=== PATIENT | male | born 1985 | race Caucasian/White ===

== ENCOUNTER 2018-12-12 11:20 | Emergency (ER) | payer MEDICAID ==
[~2018-12-12] VITALS: Ht 177.8 cm; Wt 121.1 kg
[2018-12-12 11:27] VITALS: BP 153/93
--- NOTE | 2018-12-12 11:33 | NUR ---
Patient ambulated to bed 10. RN evaluating patient at bedside.
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
[2018-12-12] MEDS ORDERED: CLINDAMYCIN 600 MG/4 ML VIAL IM ONE (12:50)
[2018-12-12] MEDS ORDERED: KETOROLAC 60 MG/2 ML VIAL IM ONE (12:50)
[2018-12-12] MEDS ORDERED: traMADol 50 MG TAB PO ONE (12:50)
[2018-12-12 14:12] VITALS: BP 140/101
--- NOTE | 2018-12-12 14:12 | NUR ---
Patient discharged with v/s stable. Written and verbal after care instructions given and explained. Patient alert, oriented and verbalized understanding of instructions. Ambulatory with steady gait. All questions addressed prior to discharge. ID band removed. Patient advised to follow up with PMD. Rx of CLINDAMYCIN, MOTRIN given. Patient educated on indication of medication including possible reaction and side effects. Opportunity to ask questions provided and answered.
== END 2018-12-12 14:12 | disposition home or self-care (01) ==
LOC: MED 11:20
DX: K02.9 Dental caries, unspecified (principal); Z88.0 Allergy status to penicillin
CPT/HCPCS: 96372; 99283; J1885; J3490

== ENCOUNTER 2021-12-03 23:35 | Emergency (ER) | payer MEDICAID ==
[~2021-12-03] VITALS: Ht 177.8 cm; Wt 127.0 kg
[2021-12-03 23:41] VITALS: BP 149/90
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
--- NOTE | 2021-12-04 01:35 | NUR ---
MD MATHEW AT BEDSIDE ASSESSING PATIENT
[2021-12-04] MEDS ORDERED: KETOROLAC 60 MG/2 ML VIAL IM ONE (01:40)
[2021-12-04] MEDS ORDERED: ACET-8386 PO (02:08)
[2021-12-04] MEDS ORDERED: IBUP-2213 PO (02:08)
[2021-12-04] MEDS ORDERED: SULF-59 PO (02:08)
[2021-12-04 02:16] VITALS: BP 149/90
--- NOTE | 2021-12-04 02:16 | NUR ---
Patient discharged with v/s stable. Written and verbal after care instructions given on Cellulitis and explained. Patient alert, oriented and verbalized understanding of instructions. Ambulatory with steady gait. All questions addressed prior to discharge. ID band removed. Patient advised to follow up with PMD. Rx of Hydrocodone/Acetaminophen, Ibuprofen, and Bactrim Ds Tablet given.
--- NOTE | 2021-12-04 02:18 | NUR ---
Chart checked and completed. The patient's care was reviewed and supervised by Michelle Maritnez RN.
== END 2021-12-04 02:16 | disposition home or self-care (01) ==
LOC: MED 23:35
DX: S61.211A Laceration without foreign body of left index finger without damage to nail, initial encounter (principal); L03.012 Cellulitis of left finger; F17.210 Nicotine dependence, cigarettes, uncomplicated; Z79.1 Long term (current) use of non-steroidal anti-inflammatories (NSAID); Z79.2 Long term (current) use of antibiotics; Z88.0 Allergy status to penicillin; W23.0XXA Caught, crushed, jammed, or pinched between moving objects, initial encounter; Y93.89 Activity, other specified; Y92.89 Other specified places as the place of occurrence of the external cause; Y99.8 Other external cause status
CPT/HCPCS: 73130; 96372; 99283; J1885

== ENCOUNTER 2022-01-07 16:12 | Emergency (ER) | payer MEDICAID ==
[~2022-01-07] VITALS: Ht 177.8 cm; Wt 113.4 kg
[~2022-01-07 16:12] MED LIST: ACET-8386 PO; IBUP-2213 PO; SULF-59 PO
[2022-01-07 16:14] VITALS: BP 124/84
--- NOTE | 2022-01-07 16:20 | NUR ---
PT AMB TO BED 7.
--- NOTE | 2022-01-07 16:27 | NUR ---
36 y/o male c/o left upper teeth pain x 2day. Patient denies any trauma or injury. Patient also denies biting anything hard. Patient has 6/10 throbbing pain to teeth and cheek. Patient also has left cheek swelling. Patient does not have a Dental appointment in the future. Medical History: Denies Allergies: PENICILLINS
[2022-01-07] MEDS ORDERED: CLINDAMYCIN 600 MG/4 ML VIAL IM ONE (16:35)
[2022-01-07] MEDS ORDERED: KETOROLAC 30 MG/ML VIAL IM ONE (16:35)
--- NOTE | 2022-01-07 16:35 | NUR ---
ALLEN Taylor evaluating patient at bedside.
[2022-01-07] MEDS ORDERED: IBUP-2213 PO (16:49)
[2022-01-07] MEDS ORDERED: CLIN300C2 PO (16:49)
--- NOTE | 2022-01-07 17:06 | NUR ---
Patient discharged with v/s stable. Written and verbal after care instructions given. Patient alert, oriented and verbalized understanding of instructions. Ambulatory with steady gait. All questions addressed prior to discharge. ID band removed. Patient advised to follow up with PMD. Rx of Clindamycin and Ibuprofen given. Opportunity to ask questions provided and answered. Work note handed to patient.
--- NOTE | 2022-01-07 17:07 | NUR ---
Chart checked and completed. The patient's care was reviewed and supervised by Sabine Gaviria RN.
== END 2022-01-07 17:06 | disposition home or self-care (01) ==
LOC: MED 16:12
DX: K04.7 Periapical abscess without sinus (principal); F17.210 Nicotine dependence, cigarettes, uncomplicated; Z79.899 Other long term (current) drug therapy; Z88.0 Allergy status to penicillin
CPT/HCPCS: 96372; 99284; J1885; J3490

== ENCOUNTER 2022-01-31 17:14 | Emergency (ER) | payer MEDICAID ==
[~2022-01-31] VITALS: Ht 177.8 cm; Wt 111.1 kg
[~2022-01-31 17:14] MED LIST changes: +CLIN300C2 PO
[2022-01-31 17:19] VITALS: BP 143/97
[2022-01-31] MEDS ORDERED: IBUP-2213 PO (18:39)
[2022-01-31] MEDS ORDERED: IMO2 PO (18:39)
[2022-01-31] MEDS ORDERED: PROM118S5 PO (18:39)
== END 2022-01-31 18:05 | disposition home or self-care (01) ==
LOC: MED 17:14
DX: B34.9 Viral infection, unspecified (principal); Z20.822 Contact with and (suspected) exposure to COVID-19; R03.0 Elevated blood-pressure reading, without diagnosis of hypertension; Z79.1 Long term (current) use of non-steroidal anti-inflammatories (NSAID); Z79.899 Other long term (current) drug therapy; Z79.2 Long term (current) use of antibiotics; Z79.891 Long term (current) use of opiate analgesic; Z88.0 Allergy status to penicillin
CPT/HCPCS: 99283

== ENCOUNTER 2022-02-09 20:16 | Emergency (ER) | payer MEDICAID ==
[~2022-02-09] VITALS: Ht 177.8 cm; Wt 113.4 kg
[~2022-02-09 20:16] MED LIST changes: +IMO2 PO; +PROM118S5 PO
[2022-02-09 20:30] VITALS: BP 135/81
--- NOTE | 2022-02-09 20:35 | NUR ---
Patient ambulated to bed 12.
--- NOTE | 2022-02-09 20:51 | NUR ---
XRAY AT BEDSIDE.
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
[2022-02-09] MEDS ORDERED: KETOROLAC 60 MG/2 ML VIAL IM ONE (21:05)
--- NOTE | 2022-02-09 22:16 | NUR ---
PT REPORTS L FOOT PAIN IMPROVEMENT.
[2022-02-09] MEDS ORDERED: IBUP-2213 PO (22:43)
[2022-02-09 23:30] VITALS: BP 158/85
== END 2022-02-09 23:07 | disposition home or self-care (01) ==
LOC: MED 20:16
DX: S90.32XA Contusion of left foot, initial encounter (principal); M19.072 Primary osteoarthritis, left ankle and foot; Z88.0 Allergy status to penicillin; Z79.899 Other long term (current) drug therapy; W20.8XXA Other cause of strike by thrown, projected or falling object, initial encounter; Y93.89 Activity, other specified; Y92.89 Other specified places as the place of occurrence of the external cause; Y99.8 Other external cause status
CPT/HCPCS: 73630; 96372; 99283; J1885

== ENCOUNTER 2022-05-07 09:04 | Emergency (ER) | payer MEDICAID ==
[~2022-05-07] VITALS: Ht 180.3 cm; Wt 127.0 kg
[2022-05-07 09:28] VITALS: BP 167/98
--- NOTE | 2022-05-07 09:37 | NUR ---
PT AMB TO BED 1.
--- NOTE | 2022-05-07 09:40 | NUR ---
37/M WALKED IN C/O CP ONSET 3 DAYS. DESCRIBES INTERMITTENT PAIN. PT ALSO STATES TOOTH INFECTION AND PAIN AND PRESENTS WITH LEFT FACIAL SWELLING ONSET 2DAYS. PT WAS SEEN AT AN URGENT CARE YESTERDAY AND WAS PX CLINDAMYCIN AND LISINOPRIL. BP AT 167/98 AT TRIAGE. DENIES SOB. PT ALSO REPORTS HAVING A DENTIST APPOINTMENT ON 05/09/22. AAOX4, AMBULATORY. PMH: HTN
[2022-05-07] MEDS ORDERED: cefTRIAXone 1,000 MG in LIDOCAINE MPF 1% 2.1 ML IM ONE (09:50)
[2022-05-07] MEDS ORDERED: cefTRIAXone 1,000 MG VIAL ONE (10:33)
[2022-05-07] MEDS ORDERED: LIDOCAINE MPF 1% 5 ML ONE (10:33)
[2022-05-07] MEDS ORDERED: HYDR-4004 PO (10:58)
[2022-05-07 11:00] VITALS: BP 152/108
--- NOTE | 2022-05-07 11:03 | NUR ---
Patient discharged with v/s stable. Written and verbal after care instructions ABOUT DENTAL ABSCESS given and explained. Patient alert, oriented and verbalized understanding of instructions. Ambulatory with steady gait. All questions addressed prior to discharge. ID band removed. Patient advised to follow up with PMD. Rx of ORETIC given. Patient educated on indication of medication including possible reaction and side effects. Opportunity to ask questions provided and answered.
== END 2022-05-07 11:03 | disposition home or self-care (01) ==
LOC: MED 09:04
DX: R07.9 Chest pain, unspecified (principal); K04.7 Periapical abscess without sinus; I10 Essential (primary) hypertension; Z88.0 Allergy status to penicillin
CPT/HCPCS: 71045; 93005; 96372; 99283; J0696; J2001; Q0092